=== PATIENT | female | born 1935 | race Caucasian/White ===

== ENCOUNTER 2016-10-06 09:16 | Emergency (ER) | payer MEDICARE, OTHER ==
[2016-10-06 09:25] VITALS: BP 127/67
--- NOTE | 2016-10-06 10:18 | UC ---
Dizzy HPI HPI Summary: WOKE UP YESTERDAY MORNING WITH VERTIGO. HAS A H/O BPPV AND USUALLY GET SX ABOUT ONCE PER YEAR. HAS AN APPT WITH PT IN DIME BOX IN 3 DAYS AND IS HERE LOOKING FOR A REFERRAL. HAS NOT BEEN DOING HER BPPV EXERCISES AT HOME SHE HAS TROUBLE DOING THEM BY HERSELF. - History Of Current Complaint Chief Complaint: UCDizziness Stated Complaint: POSSIBLE VERTIGO Time Seen by Provider: 10/06/16 10:13 Hx Obtained From: Patient Onset/Duration: Sudden Onset, Lasting Days, Still Present Timing: Intermittent Episode Lasting Severity Initially: Moderate Severity Currently: Moderate Pain Intensity: 0 Pain Scale Used: 0-10 Numeric Character: Dizzy Aggravating Factor(s): Position Change, Change In Head Position Alleviating Factor(s): Rest Associated Signs And Symptoms: Positive: Nausea. Negative: Diaphoresis, Tinnitus, Chest Pain, SOB, Palpitations, Unsteady Gait, Visual Changes - Allergies/Home Medications Allergies/Adverse Reactions: Allergies Allergy/AdvReac Type Severity Reaction Status Date / Time Sulfa Antibiotics Allergy Unknown Verified 01/02/14 10:51 Reaction Details Home Medications: Home Medications Denosumab(NF) [Prolia(NF)] 60 mg SC 10/06/16 [History] PMH/Surg Hx/FS Hx/Imm Hx - Additional Past Medical History Additional PMH: VERTIGO Endocrine History Of: Denies: Diabetes, Thyroid Disease Cardiovascular History Of: Denies: Cardiac Disorders, Hypertension Respiratory History Of: Denies: COPD, Asthma GI/ History Of: Denies: Ulcer - Surgical History Surgical History: Yes Surgery Procedure, Year, and Place: SPHENOID CYST REMOVED 6 YRS AGO - Family History Known Family History: Negative: Blood Disorder - Social History Alcohol Use: Occasionally Alcohol Amount: 2 weekly Substance Use Type: None Smoking Status (MU): Never Smoked Tobacco - Immunization History Most Recent Influenza Vaccination: fall 2014 Most Recent Pneumonia Vaccination: not out of date Review of Systems Constitutional: Negative Skin: Negative Respiratory: Negative Cardiovascular: Negative Gastrointestinal: Other - NAUSEA Neurological: Other - DIZZY All Other Systems Reviewed And Are Negative: Yes Physical Exam Triage Information Reviewed: Yes Appearance: Well-Appearing, No Pain Distress, Well-Nourished Vital Signs: Initial Vital Signs Temp 98.5 F 10/06/16 09:20 Pulse 84 01/20/17 09:20 Resp 18 10/06/16 09:20 BP 127/67 10/06/16 09:20 Pulse Ox 99 10/06/16 09:20 Vital Signs Reviewed: Yes Eyes: Positive: Conjunctiva Clear ENT: Positive: Hearing grossly normal, Pharynx normal, TMs normal Neck: Positive: Supple, Nontender, No Lymphadenopathy Respiratory Exam: Normal Cardiovascular Exam: Normal Abdomen Description: Positive: Soft Musculoskeletal: Positive: No Edema Neurological: Positive: Alert Psychological: Positive: Age Appropriate Behavior Skin: Negative: rashes Dizzy Course/Dx - Course Course Of Treatment: PT DECLINES RX FOR DIZZINESS AND NAUSEA - Differential Dx/Diagnosis Provider Diagnoses: BPPV Discharge - Discharge Plan Condition: Stable Disposition: HOME Patient Education Materials: Benign Paroxysmal Positional Vertigo (ED) Referrals: Hamida Mcclure MD [Primary Care Provider] - If Needed Additional Instructions: DO YOUR BPPV EXERCISES AT HOME ABLE. KEEP YOUR PT APPT IN 3 DAYS. REFERRAL BELOW. PHYSICAL THERAPY REFERRAL: You have been prescribed physical therapy. Treatments may include stretching, exercise, application of heat or cold, and other modalities. After an injury, PT can reduce swelling and pain. In recovery, PT is used to restore mobility and strength. Your specific treatment goals are: Reduction of Swelling (EGS, US, ice as needed) Pain Reduction (EGS, US, ice as needed) TENS Pack Fitting and Instruction Wound Hydrotherapy Preservation of Mobility __X__ Denominational of Mobility Strength Denominational Work or Sports Hardening This instruction sheet also serves as your PHYSICAL THERAPY REFERRAL! Please take it with you to the therapist, so he/she will be aware of your diagnosis and treatment plan. You may see the physical therapist of your choice for these treatments, but may wish to check with your insurance to be sure the provider you select is covered. It's important to see the doctor to whom you have been referred for follow up.
== END 2016-10-06 10:35 | disposition home or self-care (01) ==
LOC: UCEAST 09:16
DX: H81.10 Benign paroxysmal vertigo, unspecified ear (principal); R11.0 Nausea; Z88.2 Allergy status to sulfonamides
CPT/HCPCS: 99211; G0463

== ENCOUNTER 2017-08-26 12:04 | Emergency (ER) | payer MEDICARE ==
[2017-08-26 14:21] VITALS: BP 137/76
--- NOTE | 2017-08-26 14:26 | UC ---
Franklin Perez Angela, scribed for Cox BransonMahamed MD on 08/26/17 at 1247 . Dizzy HPI HPI Summary: In Room Note: This pt is a 81 y/o female presenting to [facility] c/o positional vertigo since 929 today. Pt additionally c/o nausea, vomiting, and diarrhea this morning. Pt states she was at latter-day this morning when she had a sudden onset of dizziness and vomiting. She describes dizziness as room spinning. Pt reports that even drinking water makes her nauseous. She also reports that her right ear "sounds like the ocean is in it." She believes she might have an ear infection but denies ear ache. Per son, pt was well yesterday. Pt has increased vertigo with opening of her eyes. Pt notes she walked 1.5 - 2 miles yesterday. Pt states she usually does the Marquis maneuver, which gives her relief. She denies any PMHx except vertigo. Note: 81 y/o with history of vertigo presents with positional vertigo today, as well as nausea and diarrhea this morning. Pulse ox is 100. Vital signs are stable, afebrile. Non-smoker. Orthostatic by measurement pulse 66, elevated systolic pressure, on no blood pressure medications. Multiple visits for vertigo beginning 2015. EKG from today shows sinus bradycardia, no acute ischemia. No previous EKGs noted. Pt has been treated by physical therapy. Nurse's Note: Nausea, diarrhea, started this am, also has positional vertigo. - History Of Current Complaint Chief Complaint: UCGeneralIllness Stated Complaint: DIZZY NAUSEA DIARRHEA Time Seen by Provider: 08/26/17 12:42 Hx Obtained From: Patient Onset/Duration: Lasting Hours, Still Present Timing: Hours Severity Currently: Severe Character: Room Spinning Aggravating Factor(s): Position Change Associated Signs And Symptoms: Positive: Nausea, Vomiting - Allergies/Home Medications Allergies/Adverse Reactions: Allergies Allergy/AdvReac Type Severity Reaction Status Date / Time Sulfa Antibiotics Allergy Unknown Verified 08/26/17 12:18 Reaction Details Home Medications: Home Medications Meclizine TAB* [Antivert 12.5 TAB*] 25 mg PO Q8H PRN 08/26/17 [History Confirmed 08/26/17] PMH/Surg Hx/FS Hx/Imm Hx Other Endocrine History: DENIES: diabetes Other Cardiovascular History: DENIES: HTN - Surgical History Surgical History: Yes Surgery Procedure, Year, and Place: SPHENOID CYST REMOVED 6 YRS AGO - Family History Known Family History: Positive: Other - Mother: Meniere's disease. Negative: Diabetes, Blood Disorder - Social History Occupation: Retired Lives: Alone Alcohol Use: Occasionally Alcohol Amount: 2 weekly Substance Use Type: None Smoking Status (MU): Never Smoked Tobacco - Immunization History Most Recent Influenza Vaccination: fall 2014 Most Recent Pneumonia Vaccination: not out of date Review of Systems Constitutional: Negative Skin: Negative Eyes: Negative ENT: Other - POS: ear discomfort. NEG: ear ache Respiratory: Negative Cardiovascular: Negative Gastrointestinal: Vomiting, Diarrhea, Nausea Genitourinary: Negative Motor: Negative Neurovascular: Negative Musculoskeletal: Negative Neurological: Other - dizziness Psychological: Negative Is Patient Immunocompromised?: No All Other Systems Reviewed And Are Negative: Yes Physical Exam Triage Information Reviewed: Yes Vital Signs: Initial Vital Signs Temp 97.6 F 08/26/17 12:10 Pulse 68 08/26/17 12:10 Resp 20 08/26/17 12:10 BP 187/82 08/26/17 12:10 Pulse Ox 100 08/26/17 12:10 Vital Signs Reviewed: Yes - Additional Comments The patient is well-nourished in no acute pain. The skin is warm and dry and skin color reflects adequate perfusion. HEENT: The head is normocephalic and atraumatic. The pupils are equal and reactive. The conjunctivae are clear and without drainage. Nares are patent and without drainage. Mouth reveals moist mucous membranes and the throat is without erythema and exudate. The external ears are intact. The ear canals are patent and without drainage. The tympanic membranes are intact. Neck is supple with full range of motion and non-tender. There are no carotid bruits. There is no neck vein distension. Respiratory: Chest is non-tender. Lungs are clear to auscultation and breath sounds are symmetrical and equal. Cardiovascular: Hear is regular rate and rhythm. There is no murmur or rub auscultated. There is no peripheral edema and pulses are symmetrical and equal. Abdomen: The abdomen is soft and non-tender. There are normal bowel sounds heard in all four quadrants and there is no organomegaly palpated. Musculoskeletal: There is no back pain noted. Extremities are non-tender with full range of motion. There is good capillary refill. There is no peripheral edema or calf tenderness elicited. Neurological: Patient is alert and oriented to person, place and time. The patient has symmetrical motor strength in all four extremities. Cranial nerves are grossly intact. I could not test her gait due to pt's vertigo. Psychiatric: The patient has an appropriate affect and does not exhibit any anxiety or depression. Procedures - Procedure Summary Procedure Summary: Procedure note, Marquis Maneuver: Multiple Marquis maneuvers, both right and left sides were tried, to minimal effect at 13:50. Pt refuses Benadryl or any other medications. At 14:17 two more Marquis maneuvers were performed with improvement. Pt is sitting up with her eyes open. Diagnostics - EKG Cardiac Rate: Bradycardia Cardiac Rhythm: Sinus: Normal - No acute ischemia. No previous EKG noted. Re-Evaluation - Re-Evaluation First Eval Re-Evaluation Time: 14:17 Comment: I tried the Marquis maneuver 2 more times (approx. 15 minutes) and there was improvement. Pt is sitting up with eyes open. Dizzy Course/Dx - Course Course Of Treatment: Medications have been included in the original chart and reviewed.Hypertensive BP reading (>=140/90); patient referred to PCP within 1 day-4 wks for follow-up. COT: Pt with multiple episodes of positional vertigo over the last 2 years presents today with vertigo. EKG shows no acute ischemia. Multiple Marquis maneuvers, both right and left sides were tried, to minimal effect. Pt refuses Benadryl or any other medications. I performed the Marquis maneuver two more times and there was improvement. Pt is sitting up with eyes open, she reports trembling in her vision. She is ready to go home and rest. Pt still refuses any medication. Pt is improved. In discussion with the pt and son she will go home and will re-check as needed. - Differential Dx/Diagnosis Differential Diagnosis/HQI/PQRI: Benign Paroxysmal Positional Vertigo, Meniere' s Disease, Transient Ischemic Attack Provider Diagnoses: Benign Positional Vertigo Discharge - Discharge Plan Condition: Stable Disposition: HOME Patient Education Materials: Benign Paroxysmal Positional Vertigo (ED) Referrals: Hamida Mcclure MD [Primary Care Provider] - Additional Instructions: Your blood pressure reading today was 187/82, indicating HYPERTENSION. Follow- up with your primary care provider within 4 weeks for blood pressure readings and further evaluation. Thank you for helping us improve patient care by filling out the My Point Survey. WE DISCUSSED: 1. You have had an episode of positional vertigo. The Marquis has helped, partially. 2. Go home, rest, for fluids try ice chips. 3. Re check as needed for repeat episodes. 4. I have given you instructions on performing the Marquis for yourself or with a health care provider. PLEASE SEEK CARE AT THE EMERGENCY DEPARTMENT IF SYMPTOMS WORSEN OR IF NEW SYMPTOMS DEVELOP. FOLLOW UP WITH YOUR PRIMARY CARE PHYSICIAN. The documentation as recorded by the Franklin reinoso Angela accurately reflects the service I personally performed and the decisions made by me, Mahamed Montesinos MD.
== END 2017-08-26 14:25 | disposition home or self-care (01) ==
LOC: UCEAST 12:04
DX: H81.10 Benign paroxysmal vertigo, unspecified ear (principal)
CPT/HCPCS: 93005; 99212; G0463

== ENCOUNTER 2017-08-29 14:12 | Observation (INO) | payer MEDICARE ==
[2017-08-29 15:15] LABS: Hematocrit 46 % (35-47); Hemoglobin 15.6 g/dl (12.0-16.0); Mean Corpuscular HGB Conc 34 g/dl (31-36); Mean Corpuscular Hemoglobin 31 pg (27-31); Mean Corpuscular Volume 92 fL (80-97); Mean Platelet Volume 9 um3 (7.4-10.4); Red Blood Count 5.02 10^6/ul (4.0-5.4); Red Cell Distribution Width 14 % (10.5-15); White Blood Count 4.3 10^3/ul (3.5-10.8)
[2017-08-29 15:33] LABS: Albumin 4.1 g/dL (3.2-5.2); BUN/Creatinine Ratio 20.7 (8-20); Calcium 9.2 mg/dL (8.6-10.3); EGFR African American 80.6 (>60); EGFR Non-African American 62.6 (>60); Globulin 2.5 g/dL (2-4); Magnesium 2.1 mg/dL (1.9-2.7); Potassium 3.9 mmol/L (3.5-5.0); Total Bilirubin 0.9 mg/dL (0.2-1.0); Total Protein 6.6 g/dL (6.4-8.9)
[2017-08-29 15:34] LABS: Troponin I 0.01 ng/mL (<0.04)
[2017-08-29 15:54] LABS: TSH (Thyroid Stimulating Horm) 1.34 mcIU/mL (0.34-5.60)
[2017-08-29] MEDS ORDERED: NS 0.9% 1000 ML* 1,000 ML IV ONE (16:04)
--- NOTE | 2017-08-29 16:28 | RAD ---
HISTORY: Vertigo, dysmetria COMPARISONS: None TECHNIQUE: Multiple contiguous axial CT scans were obtained of the head without intravenous contrast. FINDINGS: HEMORRHAGE/INFARCT: There is no hemorrhage or acute infarct. MASSES/SHIFT: There is no mass or shift. EXTRA-AXIAL SPACES: There are no extra-axial fluid collections. SULCI AND VENTRICLES: The sulci and ventricles are normal in size and position for the patient's stated age. CEREBRUM: There are no focal parenchymal abnormalities. BRAINSTEM: There are no focal parenchymal abnormalities. CEREBELLUM: There are no focal parenchymal abnormalities. VESSELS: The vessels are grossly normal. PARANASAL SINUSES: The paranasal sinuses are clear. ORBITS: The orbits are unremarkable. BONES AND SOFT TISSUE: No bone or soft tissue abnormalities are noted. OTHER: None IMPRESSION: NO ACUTE INTRACRANIAL PATHOLOGY.
[2017-08-29] MEDS ORDERED: Ondansetron INJ* 2 MG/ML VIAL IV PRN (17:50)
[2017-08-29] MEDS ORDERED: Diazepam TAB(*) 5 MG PO PRN (17:54)
[2017-08-29] MEDS ORDERED: NS 0.9% 1000 ML* 1,000 ML IV SCH (18:30)
--- NOTE | 2017-08-29 20:48 | HP ---
CC: Dr. Mcclure * HISTORY AND PHYSICAL: DATE OF ADMISSION: 08/29/17 PRIMARY CARE PROVIDER: Dr. Mcclure. ATTENDING PHYSICIAN: Izabel Kline MD * (report dictated provided by Annette Zavala NP) CHIEF COMPLAINT: Vertigo. HISTORY OF PRESENT ILLNESS: The patient is an 81-year-old female with past medical history significant only for vertigo in the past who presented to the emergency room today with 2 to 3 day history of vertigo. The patient states she has had intermittent episodes of vertigo dating back in 2007. She has worked with vestibular therapy in the past. Sunday morning, she developed vertigo. She went to [facility] and was taught to do the Tomlinson maneuver. She stated this helped and she went home and continued to do this at home, yet on Sunday morning she had difficulty getting out of bed and walking. She tried the maneuver again and did not feel like it was helping. She states the vertigo was worse when standing up. Today, she heard ringing in her ears and came to the emergency room for further evaluation. In the emergency room, the patient had a CT scan of her brain that was negative. The ER provider discussed the case with Neurology who recommended admission for an MRI to rule out posterior circulation stroke. The patient will be placed on observation for vertigo and possible stroke. PAST MEDICAL HISTORY: 1. Osteoporosis. 2. Vertigo. HOME MEDICATIONS: 1. Vitamin D. 2. Chewable calcium. 3. Centrum. ALLERGIES: SULFA, ONIONS. FAMILY HISTORY: The patient's mother had a history of Meniere's disease. The patient's father had a history of bone cancer. SOCIAL HISTORY: The patient does not smoke, drink, or use illicit drugs. She lives alone. Her son, Bill England, will be the surrogate decision maker in the event that the patient cannot make decisions for herself. REVIEW OF SYSTEMS: I performed a 14-point review of systems. All the pertinent positives and negatives are mentioned in the history of present illness. The remaining review of systems is negative. PHYSICAL EXAMINATION GENERAL APPEARANCE: The patient is alert, pleasant, appeared to be in no apparent distress. VITAL SIGNS: Temperature is 98.5, heart rate 69, respiratory rate 20, blood pressure 168/78, oxygen saturation 99%. HEENT: Normocephalic/atraumatic. Pupils are equal and reactive to light. Extraocular movements are intact. NECK: Supple. There is no lymphadenopathy noted. RESPIRATORY: There was no accessory muscle use. Lungs were clear to auscultation. CARDIAC: S1, S2 were crisp. There were no murmurs, rubs, or gallops heard. ABDOMEN: Soft, nontender, nondistended. There are bowel sounds x4. EXTREMITIES: There is no lower extremity edema. DP and PT pulses are 2+ and symmetric. MUSCULOSKELETAL: There is no clubbing or cyanosis noted. The patient exhibits equal strength in all extremities. NEURO: Cranial nerves II through XII are intact. The patient does have nystagmus with right-sided gaze. Lower extremities were intact to light touch. SKIN: There were no rashes or abnormalities seen. PSYCH: The patient is alert and oriented x3. LABORATORY DATA: Sodium 136, potassium 3.9, chloride 104, CO2 26, BUN 18, creatinine 0.87, glucose 123. Lactic acid 1. Magnesium 2.1. Liver function tests within normal limits. White blood cell count 4.3, hemoglobin 15.6, hematocrit 46, platelet count 120. IMPRESSION: This is an 81-year-old female with past medical history significant for vertigo, presents to the emergency room with 2 to 3 day history of vertigo. The patient will be placed on observation for MRI to rule out posterior circulation cerebrovascular accident and for further treatment for her vertigo. ASSESSMENT AND PLAN: 1. Vertigo: It is likely this is peripheral, yet given the duration of the symptoms we will get an MRI to rule out posterior circulation cerebrovascular accident. The patient has been averse to medications for treatment yet I have discussed with her that if she does not take this therapy then her symptoms will not improve. I have ordered standing Valium and meclizine for her symptoms. The patient will be monitored on telemetry overnight. If the MRI is positive for stroke, then further stroke workup will be pursued. 2. Osteoporosis: The patient is due to have a Prolia injection in September. 3. DVT prophylaxis: She is at moderate risk. She will have subcu heparin. 4. Fluid, electrolytes, and nutrition: The patient does appear to be dehydrated. She will receive a liter of fluid overnight and be written for regular diet. 5. Code status is full. TIME SPENT: Time for this admission was 60 minutes and over half the time was spent with the patient discussing past medical history and events leading up to her arrival in the emergency room. ANNETTE ZAVALA NP [id number]/[facility] #: [id number] JOSELINE
[2017-08-29] MEDS ORDERED: CMCS Melatonin (NF) 3 MG TAB PO SCH (21:00)
--- NOTE | 2017-08-29 21:02 | RAD ---
HISTORY: Persistent vertigo COMPARISONS: Head CT dated March 29, 2017 TECHNIQUE: The following sequences were obtained of the head: Sagittal T1-weighted images, axial T2-weighted images, axial FLAIR images, axial susceptibility weighted images, axial T1-weighted images. Additionally, axial diffusion-weighted images were obtained with calculated apparent diffusion coefficients. FINDINGS: HEMORRHAGE/INFARCT: There is no hemorrhage or acute infarct. MASSES/SHIFT: There is no mass or shift. EXTRA-AXIAL SPACES/MENINGES: There are no extra-axial fluid collections. SULCI AND VENTRICLES: The sulci and ventricles are normal in size and position for the patient's stated age. CEREBRUM: There are no focal parenchymal abnormalities. BRAINSTEM: There are no focal parenchymal abnormalities. CEREBELLUM: There are no focal parenchymal abnormalities. The cerebellar tonsils are normal in size and position. SELLA: The sella is normal. PINEAL: The pineal region is clear. CP ANGLE/TEMPORAL BONES: The labyrinthine structures are grossly normal. VESSELS: Normal flow-voids are noted within the visualized vertebral vasculature. DIFFUSION ABNORMALITIES: There are no diffusion abnormalities. PARANASAL SINUSES/MASTOIDS: The paranasal sinuses are clear. ORBITS: The orbits are unremarkable. BONES AND SOFT TISSUE: No bone or soft tissue abnormalities are noted. OTHER: None IMPRESSION: UNREMARKABLE MRI OF THE BRAIN.
[2017-08-29] MEDS: Diazepam TAB(*) 5 MG PO SCH (21:20)
[2017-08-29] MEDS: Heparin VIAL(*) 5000 UNITS/ML VIAL (FIVE THOUSAND) SUBCUT SCH (21:21)
[2017-08-29] MEDS: Meclizine TAB* 12.5 MG PO SCH (21:22)
[2017-08-29 21:48] LABS: Urine Bacteria Absent (Absent); Urine Bilirubin Negative (Negative); Urine Glucose Negative (Negative); Urine Nitrite Negative (Negative)
[2017-08-29] MEDS ORDERED: Meclizine TAB* 12.5 MG PO SCH (22:00)
--- NOTE | 2017-08-29 22:56 | ED ---
Imani Perez Gabriel scribed for Cameron Yo MD on 08/29/17 at 1529 . Dizziness - HPI Summary HPI Summary: This patient is a 81 year old F presenting to [facility] with a chief complaint of dizziness since 4 days ago. She describes the dizziness as room spinning. Patient reports nausea and roaring sounds in her ear. Patient has symptoms even while lying but it is not as severe while lying. Patient states she is unable to walk without staggering. [facility] and she did the Bran maneuver worked until the next morning. She had vertigo since 2007 and in 2009 she had a mass removed from her sinuses (non surgically) and it cured her vertigo. She is now having similar symptoms and believes there is a mass in the other nasal passage. - History Of Current Complaint Chief Complaint: EDDizziness Stated Complaint: VERTIGO Time Seen by Provider: 08/29/17 14:58 Hx Obtained From: Patient Timing: Constant Severity Initially: Moderate Severity Currently: Moderate Character: Room Spinning Aggravating Factor(s): Headache, Position Change, Supine To Erect, Change In Head Position, Other Alleviating Factor(s): Lying Down Associated Signs And Symptoms: Positive: Negative, Other: - nausea and roaring sounds in her ear - Allergies/Home Medications Allergies/Adverse Reactions: Allergies Allergy/AdvReac Type Severity Reaction Status Date / Time Sulfa Antibiotics Allergy Unknown Verified 08/29/17 15:14 Reaction Details PMH/Surg Hx/FS Hx/Imm Hx Previously Healthy: Yes Endocrine/Hematology History: Denies: Hx Diabetes, Hx Thyroid Disease Cardiovascular History: Denies: Hx Hypertension Respiratory History: Denies: Hx Asthma, Hx Chronic Obstructive Pulmonary Disease (COPD), Hx Pneumonia GI History: Denies: Hx Diverticulosis, Hx Gall Bladder Disease, Hx Ulcer Neurological History: Denies: Hx CVA, Hx Dementia - Surgical History Surgery Procedure, Year, and Place: SPHENOID CYST REMOVED 6 YRS AGO Infectious Disease History: No Infectious Disease History: Denies: Hx Clostridium Difficile, Hx Hepatitis, Hx Human Immunodeficiency Virus (HIV), Hx of Known/Suspected MRSA, Hx Shingles, Hx Tuberculosis, Hx Known/ Suspected VRE, Hx Known/Suspected VRSA, History Other Infectious Disease, Traveled Outside the [place] in Last 30 Days - Family History Known Family History: Positive: Other - Mother: Meniere's disease. Negative: Diabetes, Blood Disorder - Social History Lives: Alone Alcohol Use: Occasionally Alcohol Amount: 2 weekly Substance Use Type: Reports: None Smoking Status (MU): Never Smoked Tobacco Review of Systems Negative: Fever, Chills Negative: Erythema Positive: Other - roaring in ears . Negative: Sore Throat Negative: Chest Pain Negative: Shortness Of Breath, Cough Positive: Nausea. Negative: Abdominal Pain, Vomiting, Diarrhea Negative: dysuria, hematuria Negative: Myalgia, Edema Negative: Rash Neurological: Other - dizziness All Other Systems Reviewed And Are Negative: Yes Physical Exam - Summary Physical Exam Summary: Constitutional: Well-developed, Well-nourished, Alert. (-) Distressed Skin: Warm, Dry HENT: Normocephalic; Atraumatic Eyes: Conjunctiva normal Neck: Musculoskeletal ROM normal neck. (-) JVD, (-) Stridor, (-) Tracheal deviation Cardio: Rhythm regular, rate normal, Heart sounds normal; Intact distal pulses; The pedal pulses are 2+ and symmetric. Radial pulses are 2+ and symmetric. (-) Murmur Pulmonary/Chest wall: Effort normal. (-) Respiratory distress, (-) Wheezes, (-) Rales Abd: Soft, (-) Tenderness, (-) Distension, (-) Guarding, (-) Rebound Musculoskeletal: (-) Edema, dysmetria in left hand Lymph: (-) Cervical adenopathy Neuro: Alert, Oriented x3, romberg positive Psych: Mood and affect Normal Triage Information Reviewed: Yes Vital Signs On Initial Exam: Initial Vitals Temp Pulse Resp BP Pulse Ox 98.5 F 77 16 175/97 94 08/29/17 14:17 08/29/17 14:17 08/29/17 14:17 08/29/17 14:17 08/29/17 14:17 Vital Signs Reviewed: Yes - Salima Coma Scale Coma Scale Total: 15 Diagnostics - Vital Signs Vital Signs Temp Pulse Resp BP Pulse Ox 08/29/17 15:17 100 137/97 08/29/17 15:14 16 08/29/17 15:05 70 17 179/87 98 08/29/17 15:00 64 14 142/90 99 08/29/17 14:44 22 08/29/17 14:43 164/73 08/29/17 14:17 98.5 F 77 16 175/97 94 - Laboratory Lab Results: Lab Results 08/29/17 Range/Units 14:50 WBC 4.3 (3.5-10.8) 10^3/ul RBC 5.02 (4.0-5.4) 10^6/ul Hgb 15.6 (12.0-16.0) g/dl Hct 46 (35-47) % MCV 92 (80-97) fL MCH 31 (27-31) pg MCHC 34 (31-36) g/dl RDW 14 (10.5-15) % Plt Count 120 L (150-450) 10^3/ul MPV 9 (7.4-10.4) um3 Neut % (Auto) 83.3 H (38-83) % Lymph % (Auto) 11.0 L (25-47) % Lyon % (Auto) 3.9 (1-9) % Eos % (Auto) 1.0 (0-6) % Baso % (Auto) 0.8 (0-2) % Absolute Neuts (auto) 3.6 (1.5-7.7) 10^3/ul Absolute Lymphs (auto) 0.5 L (1.0-4.8) 10^3/ul Absolute Monos (auto) 0.2 (0-0.8) 10^3/ul Absolute Eos (auto) 0 (0-0.6) 10^3/ul Absolute Basos (auto) 0 (0-0.2) 10^3/ul Absolute Nucleated RBC 0.01 10^3/ul Nucleated RBC % 0.1 Result Diagrams: 08/29/17 14:50 08/29/17 14:50 Lab Statement: Any lab studies that have been ordered have been reviewed, and results considered in the medical decision making process. - CT Brain CT CT Interpretation Completed By: Radiologist - NO ACUTE INTRACRANIAL PATHOLOGY. ED physician has reviewed this radiology report. - EKG 1452 Cardiac Rate: NL EKG Rhythm: Sinus Rhythm - at 62 BPM EKG Interpretation: no STEMI Dizzy Course/Dx - Course Assessment/Plan: This patient is a 81 year old F presenting to [facility] with a chief complaint of dizziness since 4 days ago. She describes the dizziness as room spinning. Patient reports nausea and roaring sounds in her ear. Patient has symptoms even while lying but it is not as severe while lying. Patient states she is unable to walk without staggering. [facility] and she did the Bran maneuver worked until the next morning. She had vertigo since 2007 and in 2009 she had a mass removed from her sinuses (non surgically) and it cured her vertigo. She is now having similar symptoms and believes there is a mass in the other nasal passage. Refusing any medical symptomatic management. Patients blood pressure is dropping spontaneously and there is no indication for IV hypotensives. An EKG reveals NSR. CT brain reveals, per radiologist, NO ACUTE INTRACRANIAL PATHOLOGY. Test results with no significant abnormalities. In the ED course the patient was given IV fluids. We discussed patient care with Dr. Pat and they recommended an MRI. Patient will be admitted with follow up from Dr. Manriquez. The patient is agreeable with this plan. - Diagnoses Provider Diagnoses: Vertigo, Dysmetria Discharge - Discharge Plan Condition: Stable Disposition: ADMITTED TO [facility] Referrals: Hamida Mcclure MD [Primary Care Provider] - Consult Consult: 1631 Discussed patient care with Dr. Pat, Neuro and she recommend an MRI during her hospitalization. [address] Manriquez and they agreed to admit the patient. The documentation as recorded by the Imani reinoso Gabriel accurately reflects the service I personally performed and the decisions made by , Cameron Yo MD.
[2017-08-30] MEDS ORDERED: Aspirin Low Dose CHEW TAB* 81 MG PO SCH ×2 (01:00→21:00)
[2017-08-30] MEDS: Diazepam TAB(*) 5 MG PO SCH ×2 (01:05→09:57)
[2017-08-30] MEDS: Meclizine TAB* 12.5 MG PO SCH (05:30)
[2017-08-30] MEDS: Heparin VIAL(*) 5000 UNITS/ML VIAL (FIVE THOUSAND) SUBCUT SCH ×2 (05:30→13:34)
[2017-08-30] MEDS ORDERED: Meclizine TAB* 12.5 MG PO SCH (10:00)
[2017-08-30 15:22] VITALS: BP 144/61
--- NOTE | 2017-09-01 13:17 | DS ---
AMENDED REPORT NOW INCLUDES COSIGNER DESIGNATION - ESIGNED BEFORE ADJUSTMENT CC: Dr. Hamida Mcclure; Dr. Nikunj Kahn MD * DISCHARGE SUMMARY: DATE OF ADMISSION: 08/29/17 DATE OF DISCHARGE: 08/30/17 ATTENDING PHYSICIAN: Izabel Kline MD * (DICTATED BY JOEL ROMERO NP) PRIMARY CARE PROVIDER: Hamida Mcclure MD REASON FOR ADMISSION: Admission for observation status. HOSPITAL COURSE: The patient presented to the emergency department with a history of vertigo that was unresolved. The patient has a longstanding history of vertigo and has dealt with it for many, many years. However, usually in the past, she had been able to deal with her vertigo on her own, taking meclizine and dealing with physical therapy. However, the vertigo was so bad that she began to have unresolved nausea, falling over dizziness and was concerned that she would sustain a fall. She had gone to [facility] in the past and physical therapists have worked with her and how to perform a Tomlinson's maneuver on herself. However, this past Sunday, she could not get out of bed and was having trouble walking. Tried to maneuver again and felt like it was not helping, came to the emergency department for evaluation. Because of the persistent vertigo and the refractory nature of her symptoms, Neurology had recommended admission and an MRI to rule out a posterior circulation stroke. MRI of the brain was negative for stroke. The patient's symptoms began to resolve with the use of Antivert and Valium during her admission. The patient was ambulatory with no nausea and dizziness subsided with alternating meclizine and Valium and again MRI was negative for any acute pathology. The patient was stabilized. She requested discharge to home and follow up on an outpatient basis with a neurologist and an ENT. As such, she was discharged to home. MEDICATIONS AT THE TIME OF DISCHARGE: Include: 1. Low dose aspirin 81 mg daily. 2. Antivert 12.5 mg q.8 hours as needed. 3. Valium 5 mg q.8 hours as needed. DIAGNOSTIC STUDIES/LAB DATA: Laboratories at the time of discharge, WBC is 4.3 , RBC is 5.02, hemoglobin 15.6, hematocrit 46, platelets 120. Chemistries: Sodium 136, potassium 3.9, chloride 104, CO2 of 26, BUN 18, creatinine 0.87, glucose 123. Urine was negative and again an MRI showed no acute abnormalities or pathology. DISPOSITION: The patient was discharged to home in the care of her son in a stable condition. All questions were answered. The patient verbalized understanding of her followup. FOLLOWUP: Follow ups including referral to Dr. Nikunj Kahn for ENT as the patient expressed interest in seeing an ENT for ongoing sinus issues, which she felt may have also contributed to her ongoing vertigo. Her primary care doctor , Dr. Hamida Mcclure, and also as needed followup with her physical therapist whom she already has an appointment with. The patient was discharged in stable condition. JOEL ROMERO NP [id number]/[facility] #: [id number] JOSELINE
== END 2017-08-30 17:46 | disposition home or self-care (01) ==
LOC: ED 14:12 → MEDTELE 17:06
PROVIDERS: ADMIT Internal Medicine; ATTEND Internal Medicine
DX: R42 Dizziness and giddiness (principal); R27.8 Other lack of coordination; R11.0 Nausea; M81.0 Age-related osteoporosis without current pathological fracture; E86.0 Dehydration
CPT/HCPCS: 36415; 70450; 70551; 80053; 81003; 81015; 83605; 83735; 84443; 84484; 85025; 87086; 93005; 96374; 99284; A9270-GY; G0378

== ENCOUNTER 2019-01-29 14:25 | Emergency (ER) | payer MEDICARE ==
--- NOTE | 2019-01-29 16:39 | UC ---
Dizzy HPI HPI Summary: 83 y/o female presents to the urgent care c/o Vertigo started Sunday. Been feeling hypertensive. Right ear "has ocean in it. " Vague pain on right side of head. (Now states she has had vertigo since 2006.) - History Of Current Complaint Chief Complaint: UCGeneralIllness Stated Complaint: VERTAGO Time Seen by Provider: 01/29/19 16:18 Hx Obtained From: Patient Pain Intensity: 3 - Allergies/Home Medications Allergies/Adverse Reactions: Allergies Allergy/AdvReac Type Severity Reaction Status Date / Time onion Allergy Itching Verified 01/29/19 15:03 Sulfa (Sulfonamide Allergy Unknown Verified 01/29/19 15:03 Antibiotics) Reaction Details PMH/Surg Hx/FS Hx/Imm Hx - Surgical History Surgical History: Yes Surgery Procedure, Year, and Place: SPHENOID CYST REMOVED 6 YRS AGO - Family History Known Family History: Positive: Other - Mother: Meniere's disease. Negative: Diabetes, Blood Disorder - Social History Alcohol Use: Rare Alcohol Amount: 2 weekly Substance Use Type: None Smoking Status (MU): Never Smoked Tobacco - Immunization History Most Recent Influenza Vaccination: fall 2014 Most Recent Pneumonia Vaccination: not out of date Physical Exam Vital Signs: Initial Vital Signs Temp 98.5 F 01/29/19 14:57 Pulse 72 01/29/19 14:57 Resp 16 01/29/19 14:57 BP 152/91 01/29/19 14:57 Pulse Ox 100 01/29/19 14:57 Dizzy Course/Dx - Differential Dx/Diagnosis Differential Diagnosis/HQI/PQRI: Benign Paroxysmal Positional Vertigo Provider Diagnosis: Benign paroxysmal positional vertigo, Right acute otitis media, Sinusitis Discharge - Sign-Out/Discharge Documenting (check all that apply): Patient Departure - d/C home All imaging exams completed and their final reports reviewed: No Studies - Discharge Plan Condition: Stable Disposition: HOME Prescriptions: Amoxicillin PO (*) [Amoxicillin 500 MG CAP*] 500 mg PO Q12H #14 cap Fluticasone NASAL SPRAY 50MCG* [Flonase NASAL SPRAY 50MCG*] 2 spray BOTH NARES DAILY #1 btl Patient Education Materials: Benign Paroxysmal Positional Vertigo (ED), Ear Infection (ED) Referrals: Hamida Mcclure MD [Primary Care Provider] - 3 Days Ramsey Mart MD [Medical Doctor] - Additional Instructions: 1- Please increase fluid intake and rest. take full course Amoxicillin antibiotic to alleviat ear infection and sinusitis. 2-Use Flonase as directed to help drain fluid. Also buy saline drops to clear sinuses 3-Continue taking Meclizine PO as directed by your PCP to alleviate dizziness 4-Please f/u w/ Dr Mart for further management in your Benign Paroxysmal Position vertigo sicne the Physical therapy for your vertigo is not longer working. You can possibly be developing Meniere's disease. 5- Your BP is elevated today. please decrease salt in your diet, monitor BP and if it continues to be elevated please f/u with your PCP for further management. - Billing Disposition and Condition Condition: STABLE Disposition: Home
[2019-01-29 17:23] VITALS: BP 141/68
== END 2019-01-29 17:35 | disposition home or self-care (01) ==
LOC: UCEAST 14:25
DX: H81.11 Benign paroxysmal vertigo, right ear (principal); H66.91 Otitis media, unspecified, right ear; J32.9 Chronic sinusitis, unspecified; Z88.2 Allergy status to sulfonamides; Z91.018 Allergy to other foods
CPT/HCPCS: 99212; G0463

== ENCOUNTER 2019-06-14 14:19 | Emergency (ER) | payer MEDICARE ==
--- OUTSIDE RECORDS SUMMARY | 2019-06-14 14:26 | XMS REPORT | Continuity of Care Document ---
:1935 External Reference #:[id number] Author Name Ramsey Mart M.D. 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 Allergies, Adverse Reactions, Alerts Active Allergies Reaction Severity Comments Date NKDA 10/18/2017 Pollen 10/18/2017 Dust 10/18/2017 Onion 10/18/2017 Medications Active Medications SIG Qnty Indications Ordering Provider Date Fluticasone 2 sprays both 32gm Ramsey Mart M.D. 05/28/2019 Propionate nostrils every day 50mcg/Act Suspension Aspirin 1 by mouth every Unknown 81mg Tablets DR day Melatonin ER 1 by mouth every Unknown 3mg night at bedtime Tablets ER Alendronate Sodium monthly Unknown 70mg/75ML Solution Centrum 1 by mouth every Unknown Tablets day Vitamin E everyday Unknown 400Unit Capsules Immunizations Description No Information Available Vital Signs Date Vital Result Comment 05/28/2019 11:17am Weight 133.19 lb Height 69 inches 5'9" BMI (Body Mass Index) 19.7 kg/m2 BP Systolic 133 mmHg BP Diastolic 81 mmHg Heart Rate 70 /min O2 % BldC Oximetry 95 % Body Temperature 96.8 F Pain Level 0 02/24/2019 1:56pm Weight 133.00 lb Height 69 inches 5'9" BMI (Body Mass Index) 19.6 kg/m2 BP Systolic 125 mmHg BP Diastolic 79 mmHg Heart Rate 73 /min O2 % BldC Oximetry 97 % Body Temperature 98.1 F Pain Level 0 Results Description No Information Available Procedures Date Code Description Status 02/24/2019 63680 Tympanometry Completed 02/24/2019 12651 Audiometry, Comprehensive Completed 02/24/2019 80075 Nasal Endoscopy, Diag. Completed Medical Devices Description No Information Available Encounters Type Date Location Provider Dx Diagnosis Office Visit 02/24/2019 Main Office Ramsey Mart M.D. R42 Dizziness and 2:15p giddiness J32.9 Chronic sinusitis, unspecified J31.0 Chronic rhinitis H90.3 Sensorineural hearing loss, bilateral Assessments Date Code Description Provider 02/24/2019 R42 Dizziness and giddiness Ramsey Mart M.D. 02/24/2019 J32.9 Chronic sinusitis, unspecified Ramsey Mart M.D. 02/24/2019 J31.0 Chronic rhinitis Ramsey Mart M.D. 02/24/2019 H90.3 Sensorineural hearing loss, bilateral Ramsey Mart M.D. Plan of Treatment No Information Available Functional Status Description No Information Available Mental Status Description No Information Available Referrals Refer to Reason for Referral Status Appt Date Ramsey Mart M.D. PER REF@ [id number] NO PRE CERT REQ FOR CT Created [address] [place], [place] [id number] [phone]
[2019-06-14 14:39] VITALS: BP 130/76
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
== END 2019-06-14 15:55 | disposition home or self-care (01) ==
LOC: UCEAST 14:19
DX: S82.025A Nondisplaced longitudinal fracture of left patella, initial encounter for closed fracture (principal); W18.30XA Fall on same level, unspecified, initial encounter; Y93.01 Activity, walking, marching and hiking; Y92.480 Sidewalk as the place of occurrence of the external cause; M85.88 Other specified disorders of bone density and structure, other site; Z88.2 Allergy status to sulfonamides; Z91.018 Allergy to other foods
CPT/HCPCS: 99212; G0463